=== PATIENT | male | born 1975 | race Caucasian/White ===

== ENCOUNTER 2018-08-20 10:54 | Emergency (ER) | payer OTHER ==
[2018-08-20 11:04] VITALS: TEMP 98.5; BMI 30.9
[2018-08-20 11:46] VITALS: BP 141/81; PULSE 81
[2018-08-20 11:53] LABS: BASO % 0.8 % (0-2.0); EOS % 1.6 % (0-4.5); HEMATOCRIT 46.2 % (35.4-49); HEMOGLOBIN 15.4 GM/dL (11.7-16.9); LYMPH % 28.2 % (8-40); MCH 28.1 pg (25.7-33.7); MCHC 33.3 g/dl (32.0-35.9); MEAN CELL VOLUME 84.5 fl (80-96); MEAN PLT VOLUME 7.9 fl (7.5-11.1); MONO % 8.1 % (3.8-10.2); NEUT % 61.3 % (42.8-82.8); PLATELET COUNT 275 K/MM3 (134-434); RBC 5.47 M/mm3 (4.00-5.60); RDW 13.5 % (11.9-15.9); WHITE BLOOD COUNT 9.1 K/mm3 (4.0-10.0)
[2018-08-20 12:06] LABS: PROTHROMBIN TIME (PATIENT) 11.8 SEC (9.7-13.0)
--- NOTE | 2018-08-20 12:11 | PDOC ---
History of Present Illness - General Chief Complaint: Chest Pain Stated Complaint: LEFT CHEST/SHOULDER PAIN Time Seen by Provider: 08/20/18 11:22 History Source: Patient Exam Limitations: Language Barrier - History of Present Illness Initial Comments: 43 yo M with a hx of HTN presents to the ER with 2 weeks of vague left sided chest pain that occasionally radiates to his back and neck. He describes the feeling as pressure like but it is not worsened with physical exertion and not associated with any nausea, vomiting, or diaphoresis. He also denies any difficulty lying flat or ankle/leg swelling. He states that the chest pain comes and goes and figured because it hasn't gone away he should come to the ER to have it evaluated. He rates the pain as 7/10. He denies recent fevers, chills, infections, SOB, difficulty breathing, dysuria , frequency, urgency, abdominal pain, headaches, or blurry vision. PCP: Peg Encinas PSH: None reported Social Hx: Drinks recreationally. Denies smoking or other substance usage. Allergies: NKA, NKDA Past History - Past Medical History Allergies/Adverse Reactions: Allergies Allergy/AdvReac Type Severity Reaction Status Date / Time No Known Allergies Allergy Verified 08/20/18 11:02 Home Medications: Ambulatory Orders Losartan Potassium [Cozaar -] 25 mg PO DAILY 08/20/18 COPD: No - Immunization History Immunization Up to Date: Yes - Suicide/Smoking/Psychosocial Hx Smoking History: Never smoked Hx Alcohol Use: No Drug/Substance Use Hx: No Review of Systems - Review of Systems Able to Perform ROS?: Yes Comments:: CONSTITUTIONAL: Absent: fever, no chills, no fatigue EYES: Absent: visual changes ENT: Absent: ear pain, no sore throat CARDIOVASCULAR: Present: Chest pain Absent: no palpitations RESPIRATORY: Absent: cough, no SOB GI: Absent: abdominal pain, no nausea, no vomiting, no constipation, no diarrhea GENITOURINARY: Absent: dysuria, no frequency, no hematuria MUSKULOSKELETAL: Present: Back pain Absent: no arthralgia, no myalgia SKIN: Absent: rash NEURO: Absent: headache *Physical Exam - Vital Signs Last Vital Signs Temp Pulse Resp BP Pulse Ox 98.5 F 81 17 141/81 100 08/20/18 11:02 08/20/18 11:45 08/20/18 11:45 08/20/18 11:45 08/20/18 11:45 - Physical Exam Comments: GENERAL: Well-appearing, well-nourished. No apparent distress. HEENT: Normocephalic, atraumatic. PERRL, EOM intact. CARDIOVASCULAR: Tachycardic rate. Normal S1, S2. Regular rhythm. PULMONARY: No evidence of respiratory distress. Lungs clear to auscultation bilaterally. No wheezing, rales or rhonchi. ABDOMEN: Soft, non-distended, non-tender. EXTREMITIES: Normal ROM in all four extremities. No gross deformities. SKIN: Warm, dry. No rash NEUROLOGICAL: No focal neurological deficits. ED Treatment Course - LABORATORY CBC & Chemistry Diagram: 08/20/18 11:43 08/20/18 11:43 - ADDITIONAL ORDERS Additional order review: Laboratory Results 08/20/18 11:43 PT with INR 11.80 INR 1.00 08/20/18 11:43 RBC 5.47 MCV 84.5 MCHC 33.3 RDW 13.5 MPV 7.9 Neutrophils % 61.3 Lymphocytes % 28.2 Monocytes % 8.1 Eosinophils % 1.6 Basophils % 0.8 - RADIOLOGY Radiology Studies Ordered: Category Date Time Status CHEST PA & LAT [RAD] Stat Radiology 08/20/18 11:26 Ordered Medical Decision Making - Medical Decision Making 43 yo M with a hx of HTN presents to the ER with 2 weeks of vague left sided chest pain that occasionally radiates to his back and neck. He describes the feeling as pressure like but it is not worsened with physical exertion and not associated with any nausea, vomiting, or diaphoresis. He also denies any difficulty lying flat or ankle/leg swelling. He states that the chest pain comes and goes and figured because it hasn't gone away he should come to the ER to have it evaluated. He rates the pain as 7/10. VS: Tachycardic DDx IBNLT: ACS/MO, pneumothorax, PNA, arrhythmia, electrolyte/metabolic disturbance, dissection, PE. Plan: Labs, trop x 2, EKG, CXR, Re-assess. EKG: normal sinus rhythm, minimal voltage criteria for LVH Labs unremarkable trop x2 negative Will DC patient with supportive care and Cardio fu *DC/Admit/Observation/Transfer Diagnosis at time of Disposition: Chest pain - Discharge Dispostion Disposition: HOME Condition at time of disposition: Improved Decision to Admit order: No - Referrals Referrals: Peg Encinas NP [Primary Care Provider] - Roberto Reyes MD [Staff Physician] - - Patient Instructions Printed Discharge Instructions: DI for Chest Pain Additional Instructions: You came into the ER with chest pain. We did some labs and a chest x-ray which showed you are not having a heart attack. Take motrin/ibuprofen/advil as needed for pain control. We are giving you the number for a gun repair clerk to call and schedule an appointment with. Please make sure to call him up and schedule an appointment. Come back to the ER immediately if your pain worsens or you have any other new or worsening concerns. Thank you for coming to the [facility] ER. We hope you feel better soon! Print Language: MONGOLIAN - Post Discharge Activity
[2018-08-20 12:21] LABS: ALK PHOS 81 U/L (45-117); ANION GAP 6 MMOL/L (8-16); BILIRUBIN,TOTAL 0.4 mg/dL (0.2-1); BLOOD UREA NITROGEN 8 mg/dL (7-18); CHLORIDE 107 mmol/L (98-107); CO2 27 mmol/L (21-32); CREATININE 0.9 mg/dL (0.55-1.3); GLUCOSE,RANDOM 118 mg/dL (74-106); MAGNESIUM 2.3 mg/dL (1.8-2.4); SGOT/AST 11 U/L (15-37); SGPT/ALT 45 U/L (13-61); SODIUM 140 mmol/L (136-145); TOT PROT 7.4 g/dl (6.4-8.2)
--- NOTE | 2018-08-20 12:54 | PDOC ---
Attending Attestation - HPI HPI: The patient is a 43 year old male, with a significant PMH of HTN, who presents to the emergency department today complaining of chest pain for 2 weeks. Patient notes the chest pain is intermittent, left-sided, described as a chest pressure, and is a 7/10 in nature. He reports that the pain occasionally radiates to his neck and back. Patient denies any aggravating or alleviating factors. The patient denies chest pain, shortness of breath, headache and dizziness. Denies fever, chills, nausea, vomit, diarrhea and constipation. Denies dysuria, frequency, urgency and hematuria. Allergies: NKA Past surgical history: None reported Social history: Social EtOh use PCP: Dr. Peg Coulter 08/20/18 13:38 - Physicial Exam PE: patient is in no acute distress. HEAD: Normal with no signs of trauma. EYES: PERRLA, EOMI, sclera anicteric, conjunctiva clear. ENT: Ears normal, nares patent, oropharynx clear without exudates. Moist mucous membranes. NECK: Normal range of motion, supple without lymphadenopathy, JVD, or masses. LUNGS: Breath sounds equal, clear to auscultation bilaterally. No wheezes, and no crackles. HEART:Regular rate and rhythm, normal S1 and S2 without murmur, rub or gallop. ABDOMEN: Soft, nontender, normoactive bowel sounds. No guarding, no rebound. No masses palpable. EXTREMITIES: Normal range of motion, no edema. No clubbing or cyanosis. No erythema, or tenderness. NEUROLOGICAL: Cranial nerves II through XII grossly intact. Normal speech. No focal neurological deficits. MUSCULOSKELETAL: Back non-tender to palpation, no CVA tenderness SKIN: Warm, Dry, normal turgor, no rashes or lesions noted. 08/20/18 13:38 - Medical Decision Making EXAM#: TYPE/EXAM: RESULT: [id number] RAD/CHEST PA LAT CHEST: Chest pain Impression: No acute chest pathology Reported By: Travon Rocha MD 08/20/18 13:17 Documentation prepared by MART Restrepo, acting as medical coordinator pesticide use for Astrid Flores MD. 08/20/18 15:41 <Patricia Diamond - Last Filed: 08/20/18 15:41> - Resident Resident Name: Laron Scherer - ED Attending Attestation I have performed the following: I have examined & evaluated the patient, The case was reviewed & discussed with the resident, I agree w/resident's findings & plan, Exceptions are as noted - Medical Decision Making 43 yo M presenting with a complaint of chest pain x 2 weeks No fevers or chills No chest wall 08/20/18 12:54 Twelve-lead EKG was performed and reviewed by me. There is normal sinus rhythm with a normal rate. The axis is normal. The intervals are normal. There are no ST or T wave abnormalities. Impression: Normal twelve-lead EKG 08/20/18 16:46 Laboratory Tests 08/20/18 08/20/18 08/20/18 11:43 11:43 11:43 WBC 9.1 Hgb 15.4 Hct 46.2 Plt Count 275 INR 1.00 BUN 8 Creatinine 0.9 Creatine Kinase 112 Troponin I < 0.02 08/20/18 14:28 WBC Hgb Hct Plt Count INR BUN Creatinine Creatine Kinase Troponin I < 0.02 <Astrid Flores - Last Filed: 08/20/18 17:55>
--- NOTE | 2018-08-20 14:24 | EKG ---
Test Reason : Blood Pressure : / mmHG Vent. Rate : 083 BPM Atrial Rate : 083 BPM P-R Int : 136 ms QRS Dur : 090 ms QT Int : 334 ms P-R-T Axes : 057 030 009 degrees QTc Int : 392 ms NORMAL SINUS RHYTHM MINIMAL VOLTAGE CRITERIA FOR LVH, MAY BE NORMAL VARIANT BORDERLINE ECG NO PREVIOUS ECGS AVAILABLE Confirmed by ELZBIETA HANLEY MD ([id number]) on 08/20/2018 2:23:45 PM Referred By: Confirmed By:ELZBIETA HANLEY MD
== END 2018-08-20 16:44 | disposition home or self-care (01) ==
LOC: JER 10:54
DX: R07.9 Chest pain, unspecified (principal)
CPT/HCPCS: 36415; 71046-TC-FY; 80053; 82550; 83735; 84484; 85025; 85610; 93005; 93010; 99284-25

== ENCOUNTER 2018-10-31 09:51 | Emergency (ER) | payer OTHER | END 2018-10-31 13:01 | LOC: JER 09:51 ==